=== PATIENT | female | born 1975 | race Two or more races ===

== ENCOUNTER 2024-10-11 11:24 | Observation (INO) | payer BC, SELFPAY ==
[2024-10-11 11:25] VITALS: BMI 24.4
--- NOTE | 2024-10-11 11:42 | EKG_ITS ---
[facility] Test Date: 2024-10-11 Pat Name: FRANCISCO FELIZ Department: Room: - Gender: Female Chief Optometry Service: : 1975 Requested By: Monica Grewal Order Number: [id number] Reading MD: Monica Grewal Measurements Intervals [place] Rate: 70 P: 58 CA: 145 QRS: 51 QRSD: 86 T: 65 QT: 386 QTc: 418 Interpretive Statements SINUS RHYTHM POSSIBLE RIGHT VENTRICULAR CONDUCTION DELAY [RSR (QR) IN V1/V2] Compared to ECG 12/25/2022 23:48:24 No significant changes /store/S0/[id number].pdf
--- NOTE | 2024-10-11 11:42 | XR_ITS ---
Damnation: PA chest single view TECHNIQUE: Upright PA chest single view Date and time: October 11, 2024 1136 hours INDICATIONS: Chest pain weakness nausea dizziness today FINDINGS: Normal heart size Lungs are clear. The osseous structures are intact IMPRESSION: No active disease
--- NOTE | 2024-10-11 11:43 | EDNOTE_ITS ---
ED General RME/HPI General Chief complaint: General Adult/Misc Complain Stated complaint: SENT BY DR. NATION FOR HIGH HR. Time Seen by Provider: 10/11/24 11:30 Arrival date/time: 10/11/24 11:24 RME / HPI RME / HPI narrative: 49-year-old female patient with no significant medical history, came in for evaluation regarding tachycardia. Apparently patient noticed that he is not feeling well, and feeling having palpitation, she checked her heart rate and it was on the 180s, went to PCP's clinic, and her heart rate was noted to be going down. Patient was seen and sent to us for further evaluation. Currently patient is not having any chest pain. Only complaint right now is posterior neck pain. Patient denies any headache denies any other complaints denies any abuse of drugs denies any drinking energy drinks or coffee. Denies any abdominal pain denies any vomiting diarrhea or fever. Related Data Previous Rx's ?Medication ?Instructions ?Recorded ciprofloxacin HCl 500 mg tablet 500 mg PO BID #14 tabs 07/30/23 (Cipro) cyclobenzaprine 10 mg tablet 10 mg PO TID PRN muscle s pasm #20 07/30/23 tabs ibuprofen 600 mg tablet 600 mg PO TID PRN pain #30 t abs 07/30/23 Allergies Allergy/AdvReac Type Severity Reaction Status Date / Time pineapple Allergy Intermediate Hives Verified 10/11/24 11:28 Review of Systems Review of Systems Narrative Review of Systems: Review of system reviewed and within normal limits except mentioned in HPI ED Exam Narrative Physical exam: VITAL SIGNS: Reviewed. GENERAL APPEARANCE: Alert and interactive, follows commands, no acute distress,, anxious HEAD AND FACE: Non-traumatic. ENT: PERRL, pink conjunctivitis, eyelid no trauma, Mucous membrane moist. NECK: Supple, nontender, no nuchal rigidity. CHEST: No tenderness, no crepitus, no paradoxical movement, no retractions. LUNGS: Clear, well ventilated, symmetric, no rales, no wheezing, no ronchi, no stridor, good breath sounds bilaterally. HEART: Regular rate, regular rhythm, no murmur, no gallops. ABDOMEN: Soft, positive bowel sounds, nondistended, no guarding, nontender, no rebound, no masses, RECTAL: Deferred. GENITAL: Deferred. NEUROLOGICAL: Gross motor function intact sensory function intact, Appropriate for age. MUSCULOSKELETAL: low back nontender, full range of motion. EXTREMITIES: Nontender, full range of motion. SKIN: Color pink, dry, no rash, no lacerations, no abrasions, no contusions. LYMPHATICS: Deferred. Course Quality Measures none Orders Category Date Time Status Patient Condition Routine Admission 10/11/24 14:[address] in Observation Status Routine Admission 10/11/24 14:07 Active EKG (ED ONLY) *Do not use* NOW Care 10/11/24 11:42 Completed Intake and Output QSHIFT Care 10/11/24 14:15 Ordered Notify provider NEEDED Care 10/11/24 14:08 Active Obtain weight NOW Care 10/11/24 14:08 Active EKG (ED Only) Stat Exams 10/11/24 11:42 Draft XR chest 1V Stat Exams 10/11/24 11:42 Completed B-Type Natriuretic Peptide Stat Lab 10/11/24 12:06 Completed Basic Metabolic Panel AM DRAW Lab 10/12/24 05:00 Ordered Basic Metabolic Panel AM DRAW Lab 10/13/24 05:00 Ordered Basic Metabolic Panel AM DRAW Lab 10/14/24 05:00 Ordered CBC AM DRAW Lab 10/12/24 05:00 Ordered CBC AM DRAW Lab 10/13/24 05:00 Ordered CBC AM DRAW Lab 10/14/24 05:00 Ordered CBC Stat Lab 10/11/24 12:06 Completed Comprehensive Metabolic Panel Stat Lab 10/11/24 12:06 Completed Drug Screen,Urine Stat Lab 10/11/24 12:36 Completed Free T4 (Free Thyroxine) Stat Lab 10/11/24 12:06 Completed Lipid Panel AM DRAW Lab 10/12/24 05:00 Ordered Liver Panel AM DRAW Lab 10/12/24 05:00 Ordered MRSA Nasal Screen Stat Lab 10/11/24 14:08 Ordered Magnesium AM DRAW Lab 10/12/24 05:00 Ordered Magnesium AM DRAW Lab 10/13/24 05:00 Ordered Partial Thromboplastin Time Stat Lab 10/11/24 12:06 Completed Phosphorous AM DRAW Lab 10/12/24 05:00 Ordered Phosphorous AM DRAW Lab 10/13/24 05:00 Ordered Prothrombin Time with INR AM DRAW Lab 10/12/24 05:00 Ordered TSH [Thyroid Stimulating Hormone] Stat Lab 10/11/24 12:06 Completed Troponin I Stat Lab 10/11/24 12:06 Completed Urinalysis, C/S if Indicated Stat Lab 10/11/24 12:36 Completed Urine Culture Stat Lab 10/11/24 12:36 Received Acetaminophen Tab [Tylenol Tab] Med 10/11/24 14:08 Active 650 mg PO Q6H PRN Famotidine Inj [Pepcid Inj] Med 10/11/24 21:00 Active 20 mg IVP BID Heparin Inj Med 10/11/24 22:00 Active 5,000 unit SC Q8HR Ondansetron Inj [Zofran Inj] Med 10/11/24 14:08 Active 4 mg IV Q6H PRN Senna [Senokot] Med 10/11/24 14:08 Active 2 tab PO BID PRN Code Status Routine Oth 10/11/24 14:08 Ordered Oxygen Delivery DAILY RT 10/11/24 14:08 Active Vital Signs Vital signs: Vital Signs Temperature 98.5 F 10/11/24 11:44 Pulse Rate 77 10/11/24 11:44 Respiratory Rate 16 10/11/24 11:44 Blood Pressure 125/80 10/11/24 11:44 Pulse Oximetry (%) 98 10/11/24 11:44 Oxygen Delivery Method Room Air 10/11/24 11:44 Discharge Plan Plan Patient Disposition: Admit Acute Care w/in Hospital Problem List Clinical Impression: Tachycardia MDM Narrative [facility] hospital course: 49-year-old female patient with no significant medical history, came in for evaluation regarding tachycardia. Apparently patient noticed that he is not feeling well, and feeling having palpitation, she checked her heart rate and it was on the 180s, went to PCP's clinic, and her heart rate was noted to be going down. Patient was seen and sent to us for further evaluation. Currently patient is not having any chest pain. Only complaint right now is posterior neck pain. Patient denies any headache denies any other complaints denies any abuse of drugs denies any drinking energy drinks or coffee. Denies any abdominal pain denies any vomiting diarrhea or fever. Patient cardiac workup today all came back unremarkable. Including normal troponin, urinalysis no UTI. EKG showed normal sinus rhythm, ventricular rate of [address] segment elevation or depression noted. Chest x-ray came back unremarkable. Case discussed with Dr. Caruso, who admitted the patient. Medication Administration(s) Medication Administration History Acetaminophen (Acetaminophen 325 Mg Tablet) 650 mg PO Q6H PRN PRN Reason: PAIN OR FEVER > 101 Stop: 11/10/24 14:07 Famotidine (Famotidine Inj 10 Mg/Ml Vial 2 Ml) 20 mg IVP BID [facility] Stop: 11/10/24 20:59 Heparin Sodium (Porcine) (Heparin Sod Inj 5000 Unit/Ml Vial) 5,000 unit SC Q8HR TIFFANIE Stop: 10/25/24 21:59 Ondansetron HCl (Ondansetron Inj 2 Mg/Ml Inj 2 Ml) 4 mg IV Q6H PRN; Protocol PRN Reason: NAUSEA OR VOMITING Stop: 11/10/24 14:07 Sennosides (Senna Tablet) 2 tab PO BID PRN; Protocol PRN Reason: CONSTIPATION Stop: 11/10/24 14:07 Diagnosis Differential diagnosis: SVT, palpitation, atrial fibrillation Most likely dx, and/or detailed dx discussion: Tachycardia Dispositon Disposition: Admit
[2024-10-11 11:44] VITALS: BP 125/80; PULSE 77; RESP 16; TEMP 36.9; O2SAT 98
[2024-10-11 12:34] LABS: Basophils % (Auto) 0 % (0-2.5); Eosinophils # (Auto) 0.1 Thou/mm3 (0.0-0.5); Eosinophils % (Auto) 1 % (0-10); Hematocrit 43.5 % (36.0-46.0); Hemoglobin 15.3 g/dL (12.0-16.0); Immature Granulocytes % (Auto) 0 % (0-0); Immature Granulocytes Auto 0.02 Thou/mm3 (0.00-0.00); Lymphocytes # (Auto) 1.8 Thou/mm3 (1.0-4.8); Lymphocytes % (Auto) 24 % (10-50); Mean Corpuscular HGB Conc 35.2 g/dl (31.0-37.0); Mean Corpuscular Hemoglobin 32.7 pg (25.0-35.0); Mean Corpuscular Volume 93 fL (80-100); Monocytes # (Auto) 0.5 Thou/mm3 (0.0-0.8); Monocytes % (Auto) 7 % (0-12); Neutrophils % (Auto) 67 % (37-80); Nucleated Red Blood Cell % 0 /100 WBC (0); Platelet Count 388 Thou/mm3 (140-440); RDW Standard Deviation 40.3 fL (36.4-46.3); Red Blood Count 4.68 Miln/mm3 (4.00-5.20); White Blood Count 7.5 Thou/mm3 (3.6-11.0)
[2024-10-11 12:54] LABS: Partial Thromboplastin Time 30.2 Seconds (22.0-36.0)
[2024-10-11 12:59] LABS: Collection Type, Urine Clean Catch
[2024-10-11 13:03] LABS: B-Type Natriuretic Peptide < 20 pg/mL (0-100)
[2024-10-11 13:10] LABS: Alanine Aminotransferase 12 U/L (10-49); Albumin, Serum 4.3 gm/dL (3.5-5.0); Albumin/Globulin Ratio 1.4 (1.2-2.2); Alkaline Phosphatase 56 U/L (46-116); Anion Gap 9 (7-16); BUN/Creatinine Ratio 7 Ratio (12-20); Bilirubin,Total 0.7 mg/dL (0.3-1.2); Blood Urea Nitrogen 5 mg/dL (9-23); Calcium 9.4 mg/dL (8.3-10.6); Calcium (Corrected) 9.4 mg/dL (8.5-10.1); Carbon Dioxide 28.7 mMol/L (20.0-31.0); Chloride 105 mMol/L (98-107); Creatinine (Component) 0.7 mg/dL (0.6-1.3); Free T4 (Free Thyroxine) 1.34 ng/dL (0.89-1.76); Globulin 3.1 gm/dL (2.3-3.5); Glucose 91 mg/dL (74-106); Osmolality,Calculated 282 (275-295); Potassium 4.4 mMol/L (3.4-5.1); Sodium 143 mMol/L (136-145); Thyroid Stimulating Hormone 0.44 uIU/mL (0.55-4.78); Total Protein 7.4 gm/dL (5.7-8.2); Troponin I < 0.002 ng/mL (0.0-0.045); eGFR > 60 See Note
[2024-10-11 13:21] LABS: Amphetamine/Methamp Scrn,U Negative (Negative); Bacteria,Urine 2+; Barbiturate Screen,Urine Negative (Negative); Benzodiazepines Screen,Urine Negative (Negative); Benzoylecgonine Screen, Ur Negative (Negative); Bilirubin,Urine Negative (Negative); Blood,Urine Negative (Negative); Clarity,Urine Clear (Clear/Hazy); Color,Urine Lt-Yellow (Lt Yel-Yel); Fentanyl Screen,Urine Negative (Negative); Glucose, Urine Negative (Negative); Ketones,Urine Negative (Negative); Leukocyte Esterase,Urine Negative (Negative); Nitrite,Urine Negative (Negative); Opiate Screen,Urine Negative (Negative); Protein,Urine Negative (Neg - Trace); RBC,Urine 2 /hpf (0-3); Specific Gravity,Urine 1.009 (1.001-1.035); Squamous Epithelial Cell,Urine 5 /hpf (0-5); THC Screen,Urine Negative (Negative); Urobilinogen,Urine Negative mg/dL (0.0-1.0); WBC,Urine 2 /hpf (0-5)
[2024-10-11 13:56] LABS: Culture Indicated,Urine Yes
--- NOTE | 2024-10-11 14:11 | PD.RESHP ---
Documentation for date of: 10/11/24 [facility] History of Present Illness History of present illness: The patient is a 49-year-old female, past medical history of migraine headaches, perimenopausal symptoms, who was directed to ER from primary care physician's office, the patient was found to be tachycardic, diaphoretic, presyncopal symptoms. Patient reported that she felt chest discomfort and felt that her heart was not beating right , so she decided to go to her primary doctor's office, where a physician saw the patient, noted to be heart rate in the 160 -170s, patient was directed to go to the emergency room. Patient reported that she has had palpitations associated with chest discomfort in the past was evaluated by computer forwarding system markup clerk Dr. Gayla Prahbakar, patient underwent cardiac cath and stress testing, which was reportedly unremarkable. By the time of arrival to ER, patient's symptoms had subsided, in the ER, initial EKG showed sinus rhythm and possible right ventricular conduction delay, narrow complexes. Chest x-ray showed no active disease. CBC and CMP within normal limits, normal electrolytes. Noted TSH 0.44, free T4 within normal limit. Urinalysis showed 2+ bacteria but no pyuria. Past medical history: History of migraines, takes Nurtec once or twice a month, perimenopausal symptoms, history of hysterectomy in the past. Allergies: NKDA Social history: Denies smoking or excessive alcohol or caffeine intake. Review of Systems Review of Systems Narrative Review of Systems: General: Denies fevers or chills HEENT: Denies congestion or sore throat Heart: Endorses chest pain?now resolved, palpitations now resolved Lungs: Denies shortness of breath or cough Abdomen: Denies diarrhea, nausea, vomiting, constipation, bright red blood per rectum or melena Genitourinary: Denies frequency, urgency, dysuria, or hematuria Musculoskeletal: Denies joint pain, denies muscular pain Neurology: Denies any numbness, tingling Review of systems otherwise negative except what is mentioned above. Past Medical History Past Medical History NEUROLOGIC: Positive Neurological Disorders and Migraine (no medication) CARDIAC: Negative Cardiac Disorders or Congestive Heart Failure RESPIRATORY: Negative Chronic Obstructive Pulmonary Disease (COPD) GASTROINTESTINAL: Negative Gastrointestinal Disorders or Hepatitis GENITOURINARY: Negative Genitourinary Disorders or Renal Disease REPRODUCTIVE: Positive Previous Pregnancies (x5); Negative Endometriosis, Pelvic Inflammatory Disease or Uterine Prolapse MUSCULOSKELETAL: Positive Musculoskeletal Disorders and Scoliosis ENDOCRINE: Negative Endocrine Disorders (possible hyperthyroid, not diagnosed), Diabetes Mellitus Type 1 or Diabetes Mellitus Type 2 HEMATOLOGIC: Negative Blood Disorders PSYCHO/SOCIAL: Positive Anxiety (takes medication prn, not daily) OTHER HISTORY: Positive Anesthesia Reactions, Chicken Pox and Measles; Negative Hospitalization, Autoimmune Disease, Down Syndrome, Developmental Delay, Shingles, Falls, Blood Transfusions, Blood Transfusion Reaction, Organ Transplant, Chemotherapy, Radiation Therapy, Hyperbaric Therapy, MRSA, VRSA, Vancomycin-Resistant Enterococci, Human Immunodeficiency Virus (HIV), Mumps, Rubella (Romansh Measles), Pertussis, Clostridium Difficile or Cancer Family History FAMILY HISTORY: Negative Family Psychiatric Problems, Family Respiratory Disorders, Family Cardiac Disorders, Family Gastrointestinal Problems, Family Cancer, Family Surgery or Family Anesthesia Reaction Surgical History SURGICAL: Positive Hysterectomy and Section (x3); Negative Cardiac Surgery, Endocrine Surgery, Abdominal Surgery, Joint Replacement or Organ Transplant Social History SMOKING STATUS: Never smoker Exam Vital Signs Temp Pulse Resp BP Pulse Ox O2 Del Method 98.5 F 77 16 125/80 98 Room Air 10/11/24 11:44 10/11/24 11:44 10/11/24 11:44 10/11/24 11:44 10/11/24 11:44 10/11/24 11:44 Narrative Exam General: AOx3, cooperative Skin: Intact, no cyanosis or edema noted. HEENT: Atraumatic/normocephalic, MILDRED, neck supple Heart: RRR, S1 and S2 without clicks or murmurs Lungs: Clear on auscultation bilaterally, no difficulty breathing Abdomen: Soft, nontender. Bowel sounds present . Vascular: Peripheral pulses palpable Neuro: No focal neurological deficits noted. Results: Labs 10/11/24 12:06 10/11/24 12:06 Labs: Short CBC 10/11/24 Range/Units 12:06 WBC 7.5 (3.6-11.0) Thou/mm3 Hgb 15.3 (12.0-16.0) g/dL Hct 43.5 (36.0-46.0) % Plt Count 388 (140-440) Thou/mm3 BMP 10/11/24 12:06 Sodium 143 Potassium 4.4 Chloride 105 Carbon Dioxide 28.7 BUN 5 L Creatinine 0.7 Glucose 91 Calcium 9.4 Cardiac Enzymes 10/11/24 Range/Units 12:06 Troponin I < 0.002 (0.0-0.045) ng/mL Liver Function 10/11/24 Range/Units 12:06 Total Bilirubin 0.7 (0.3-1.2) mg/dL ALT 12 (10-49) U/L Alkaline Phosphatase 56 (46-116) U/L Albumin 4.3 (3.5-5.0) gm/dL Urine 10/11/24 Range/Units 12:36 Urine Color Lt-Yellow (Lt Yel-Yel) Urine Clarity Clear (Clear/Hazy) Urine pH 7.0 (5.0-7.0) Ur Specific Pride 1.009 (1.001-1.035) Urine Protein Negative (Neg - Trace) Urine Glucose (UA) Negative (Negative) Quality Measures Quality Measures VTE prophylaxis Medications Home Medications and Allergies Allergies Allergy/AdvReac Type Severity Reaction Status Date / Time pineapple Allergy Intermediate Hives Verified 10/11/24 11:28 Visit Medications Acetaminophen (Acetaminophen 325 Mg Tablet) 650 mg PO Q6H PRN PRN Reason: PAIN OR FEVER > 101 Stop: 11/10/24 14:07 Heparin Sodium (Porcine) (Heparin Sod Inj 5000 Unit/Ml Vial) 5,000 unit SC Q8HR TIFFANIE Stop: 10/25/24 21:59 Ondansetron HCl (Ondansetron Inj 2 Mg/Ml Inj 2 Ml) 4 mg IV Q6H PRN; Protocol PRN Reason: NAUSEA OR VOMITING Stop: 11/10/24 14:07 Sennosides (Senna Tablet) 2 tab PO BID PRN; Protocol PRN Reason: CONSTIPATION Stop: 11/10/24 14:07 Assessment & Plan Problem List (1) Tachycardia: Status: Acute Assessment and plan: History of intermittent palpitations, associated with atypical chest pain, and primary care physician's office noted to have a heart rate in the 160s, was directed to go to the emergency room, normal sinus rhythm on EKG on arrival to the emergency room. Patient had a prior evaluation by computer forwarding system markup clerk Dr. Gayla Prabhakar in 2023 including stress testing and left heart cath, which was unremarkable. Patient likely has paroxysmal SVT, will require observation for 24 to 48 hours on telemetry to monitor for arrhythmia. TSH below normal, but normal free T4, possible subclinical hyperthyroidism, will require repeat thyroid function testing in the a.m. - Cardiology consulted Dr. Gayla Prabhakar placed - Telemetry monitoring during inpatient stay, may require Holter or loop recorder for extended monitoring On discharge. (2) Chest pain: Status: Acute Assessment and plan: Complaining of atypical chest pain located on the upper chest, no radiation to the jaw or extremities, describes it as sharp pain, but associated to only during episodes of palpitations. Patient had normal coronary arteries on left heart cath in 2023. Initial troponin within normal limits. EKG shows normal sinus rhythm with no acute ST or T wave changes. Denied active chest pain at the time of evaluation. - Consider repeat troponin if chest pain continues. (3) History of migraine: Status: Acute Assessment and plan: Patient takes Nurtec for migraines, requires to take it once or twice a month. ? Tylenol for headache as needed (4) Perimenopause: Status: Acute Assessment and plan: Experiencing perimenopausal symptoms, including diaphoresis, chest tightness, but tachycardia with heart rate in the 160s is unusual and cannot be explained by perimenopausal symptoms. ? Pending med rec ? Observe on telemetry. (5) Bacteriuria: Status: Acute Assessment and plan: The patient denied any fever or dysuria, urinalysis positive for 2+ bacteria but negative pyuria. ? Pending urine culture, patient asymptomatic will hold off on antibiotics at this moment for asymptomatic bacteriuria. Assessment Disposition: Observe- tele DVT prophylaxis: Heparin subcut GI prophylaxis: Famotidine Diet: regular Lines: PIV CODE STATUS: Full Plan Plan of care discussed with the attending physician Dr. Cathryn Mas PGY2 Attending Provider Attestation/Addendum Patient seen and examined with resident physician Dr. Ruiz. Note reviewed, agree with findings and recommendations. Addendum admitted with tachycardia, palpitations. Spoke to Dr. Sotelo-will do overnight admission. Monitor closely.
[2024-10-11 14:39] VITALS: BP 135/69; PULSE 60; PULSE 67; RESP 16; RESP 18; RESP 99; O2SAT 99
[2024-10-11 16:00] VITALS: PULSE 70
[2024-10-11 20:00] VITALS: BP 120/64; PULSE 78; PULSE 84; RESP 18; TEMP 36.4; O2SAT 97
[2024-10-11] MEDS: FAMOTIDINE INJ 10 MG/ML VIAL 2 ML 20 MG IVP (21:34)
[2024-10-11] MEDS: HEPARIN SOD INJ 5000 UNIT/ML VIAL SC (21:35)
--- NOTE | 2024-10-11 22:38 | ESCONSULT_ITS ---
RE: FRANCISCO FELIZ : 1975 DATE OF CONSULTATION: 10/11/2024 CONSULTING PHYSICIANS: REASON FOR CONSULTATION: Evaluation of palpitations, possible SVT, tachycardia, cardiac arrhythmia symptomatic. HISTORY OF PRESENT ILLNESS: The patient is a 49-year-old female with a past medical history of migraine headaches, atypical chest pain, negative coronary angiogram. She had a coronary angiogram a year ago showing normal coronary arteries. Negative cardiac workup. She has been doing well until today. Apparently, the patient felt sudden onset of tachycardia, rapid heart rate and palpitation, diaphoretic, nearly fainted, presyncopal episode felt like the heart was going extremely fast. It was sudden onset of symptoms, heart rate 160 to 170 beats per minute, lasted about 20 minutes, abrupt onset and she went to Dr. Lockett primary care where she was having severe palpitations and was sent to the emergency room. By the time she came to the emergency room, her heart rate is back to normal. EKG is also normal. There is no evidence of cardiac arrhythmias. Chest x-ray was negative. CBC is normal. Thyroid panel is normal. Rest of the workup is negative. She is here for observation for possible SVT arrhythmias. PAST MEDICAL HISTORY: History of migraine headaches that take Nurtec and also perimenopausal symptoms. PAST SURGICAL HISTORY: Hysterectomy, cardiac workup. Coronary angiogram was performed in 07/2023 that did show essentially normal coronary arteries, ejection fraction 70%. She was not having these type of symptoms in the past. ALLERGIES: Unknown. MEDICATIONS: The patient is on no major cardiac medications. SOCIAL HISTORY: The patient is a nonsmoker. She does not drink alcoholic beverage. She does have a cup of coffee. FAMILY HISTORY: Family history is not contributory. REVIEW OF SYSTEMS: Cardiovascular system: Palpitations, near syncope, but no chest pain. No shortness of breath. Gastrointestinal: No history of nausea, or vomiting. PHYSICAL EXAMINATION: GENERAL: Pleasant lay, thin built alert, awake, in no acute distress. VITAL SIGNS: Vital signs are normal. Blood pressure 120/64. Pulse rate is 78, regular. Respirations 16. Temperature normal. HEENT: Head is atraumatic, normocephalic. Eyes normal. ENT normal. NECK: Supple. No JVD. Carotid pulses felt but no bruits. CHEST: Symmetrical. LUNG: Clear. HEART: S1, S2 regular. No gallops or murmurs. ABDOMEN: Thin and soft. EXTREMITIES: No edema. /RECTAL: Not performed. SKIN: Normal. DIAGNOSTIC DATA: Echocardiogram showed sinus rhythm, nonspecific changes. ASSESSMENT: 1. Episode of near syncope secondary to tachycardia. 2. Marked tachycardia 160 beats per minute with sudden onset sudden lasting 20 minutes. Highly likelihood this is AV terell oriented type of supraventricular tachycardia, again not recorded. RECOMMENDATIONS: The patient should overnight. Discharge the patient home. I will do a 7-day heart monitor initially in my office and subsequently 30-day heart monitor and possible event monitor to record the arrhythmias. The patient may have SVT episodes if it is diagnosed, especially if it is frequent episodes every few weeks instead of every few months, she may be a candidate for ablation procedure. For now, we will watch overnight. The patient to have further workup as an outpatient in my office. DT: 21:27:59 TT: 22:20:00 Ref: [id number] - TID: [id number] MTDD
[2024-10-12] VITALS: BP 96/62; PULSE 63; PULSE 65; RESP 12; TEMP 36.6; O2SAT 98
[2024-10-12 04:00] VITALS: BP 91/57; PULSE 63; PULSE 68; RESP 18; TEMP 36.1; O2SAT 97
[2024-10-12 05:02] VITALS: BMI 25.9
[2024-10-12] MEDS: HEPARIN SOD INJ 5000 UNIT/ML VIAL SC (05:20)
[2024-10-12 05:23] VITALS: BP 102/59; PULSE 67
[2024-10-12 05:45] LABS: Basophils % (Auto) 1 % (0-2.5); Eosinophils # (Auto) 0.1 Thou/mm3 (0.0-0.5); Eosinophils % (Auto) 2 % (0-10); Hematocrit 39.6 % (36.0-46.0); Hemoglobin 13.7 g/dL (12.0-16.0); Immature Granulocytes % (Auto) 0 % (0-0); Immature Granulocytes Auto 0.01 Thou/mm3 (0.00-0.00); Lymphocytes # (Auto) 2.3 Thou/mm3 (1.0-4.8); Lymphocytes % (Auto) 32 % (10-50); Mean Corpuscular HGB Conc 34.6 g/dl (31.0-37.0); Mean Corpuscular Hemoglobin 33.3 pg (25.0-35.0); Mean Corpuscular Volume 96 fL (80-100); Monocytes # (Auto) 0.6 Thou/mm3 (0.0-0.8); Monocytes % (Auto) 9 % (0-12); Neutrophils # (Auto) 4.1 Thou/mm3 (1.8-7.7); Neutrophils % (Auto) 57 % (37-80); Nucleated Red Blood Cell % 0 /100 WBC (0); Platelet Count 338 Thou/mm3 (140-440); RDW Standard Deviation 41.1 fL (36.4-46.3); Red Blood Count 4.12 Miln/mm3 (4.00-5.20); White Blood Count 7.2 Thou/mm3 (3.6-11.0)
[2024-10-12 06:03] LABS: Prothrombin Time 10.8 Seconds (9.0-12.2)
[2024-10-12 06:27] LABS: Glucose Estimated Average 97 mg/dL (80-131)
[2024-10-12 06:46] LABS: Alanine Aminotransferase 9 U/L (10-49); Albumin, Serum 3.4 gm/dL (3.5-5.0); Alkaline Phosphatase 45 U/L (46-116); Anion Gap 6 (7-16); Aspartate Amino Transferase 18 U/L (0-34); BUN/Creatinine Ratio 10 Ratio (12-20); Bilirubin,Direct 0.2 mg/dL (0.0-0.3); Bilirubin,Total 0.7 mg/dL (0.3-1.2); Blood Urea Nitrogen 6 mg/dL (9-23); Calcium 8.5 mg/dL (8.3-10.6); Carbon Dioxide 24.9 mMol/L (20.0-31.0); Cardiac Risk Estimate 3.4 RATIO (3.7-5.6); Chloride 109 mMol/L (98-107); Cholesterol 165 mg/dL (132-200); Creatinine (Component) 0.6 mg/dL (0.6-1.3); Estimated Creatinine Clearance 90.1 mL/min (>60); Free T4 (Free Thyroxine) 1.25 ng/dL (0.89-1.76); Glucose 85 mg/dL (74-106); HDL Cholesterol 48 mg/dL (40-60); LDL Cholesterol,Calculated 94 mg/dL (0-130); Magnesium 1.8 mg/dL (1.6-2.6); Osmolality,Calculated 276 (275-295); Phosphorous 3.4 mg/dL (2.4-5.1); Potassium 3.9 mMol/L (3.4-5.1); Sodium 140 mMol/L (136-145); Thyroid Stimulating Hormone 0.68 uIU/mL (0.55-4.78); Total Protein 5.9 gm/dL (5.7-8.2); Triglycerides 116 mg/dL (30-150); eGFR > 60 See Note
[2024-10-12 08:00] VITALS: BP 117/66; PULSE 73; PULSE 93; RESP 24; TEMP 36.4; O2SAT 98
[2024-10-12] MEDS: Magnesium Sulfate 2 GM Ivpb 2 GM/50 ML BAG IV (08:02)
[2024-10-12] MEDS: FAMOTIDINE INJ 10 MG/ML VIAL 2 ML 20 MG IVP (08:02)
[2024-10-12] MEDS: POTASSIUM CHLORIDE 20 mEq TABCR PO (08:03)
--- NOTE | 2024-10-12 08:56 | ESDS_ITS ---
Planned Discharge Date 10/12/24 DS: Providers Provider Date of admission: 10/11/24 14:18 Primary care physician: Shira Lockett MD Admitting Provider: Shira Lockett MD Attending Provider on Admission: Shira Lockett MD Consults: 10/11/24 15:40 Consult to Cardiology Routine Comment: Consulting Provider: Tyron Prabhakar Attending Provider on DC: Shira Lockett MD Discharging Provider: Shira Lockett MD DS: Diagnosis Problem List Completed Was Problem List Reviewed/Reconciled?: Yes Hospital Course Hospital Course Hospital course: Aruna is a 49-year-old female w/PMHx of migraine headaches, perimenopausal symptoms, who was admitted to [facility] on 10/11/2024 from her PCP's office, Dr. Lockett for evaluation of SVT. Pt was told to go to ER after she had noticed her HR was in the 160s and was seen in the office where her heart rate was running from the 160s to 170s and felt diaphoretic and predromal sx. By the time of arrival to ER, patient's symptoms had subsided, in the ER, initial EKG showed sinus rhythm and possible right ventricular conduction delay, narrow complexes. Chest x-ray showed no active disease. CBC and CMP within normal limits, normal electrolytes, TSH 0.68, free T4 within normal limit. Urinalysis showed 2+ bacteria but no pyuria. Patient was admitted for observation. While patient was on the floors, patient was seen by osteopathic physician, Dr. Prabhakar who is her osteopathic physician. Dr. Prabhakar had recommended patient to get Holter monitor outpatient for further workup and may be a candidate for ablation procedure based off findings as there was no recorded event of SVT at this time. Patient in the past has had negative coronary angiogram, and her further cardiac workup was unremarkable. She was then discharged with the following instructions. Discharge Instructions: Follow-up with your PCP, Dr. Lockett within [address] Prabhakar's office today for Holter monitor placement Avoid energy drinks, limit caffeine intake and drink plenty of water Return to ED if your symptoms worsen or return Problem List: #SVT #History of migraine #Perimenopause #Bacteriuria Discharge summary was reviewed with my attending Dr. Cathryn Kamara, PGY-1 Status at Discharge Cognitive/behavioral status at discharge: Stable Functional status at discharge: independent ambulation Overall status at discharge: patient is back to baseline Time Spent with Patient Time attestation: Total time spent providing and/or coordinating discharge services: Time spent: Greater than 30 minutes Exam Vital Signs Temp Pulse Resp BP Pulse Ox O2 Del Method 97.6 F 93 24 H 117/66 98 Room Air 10/12/24 08:00 10/12/24 08:00 10/12/24 08:00 10/12/24 08:00 10/12/24 08:00 10/12/24 08:00 Narrative Exam General: AOx3, cooperative Skin: Intact, no cyanosis or edema noted. HEENT: Atraumatic/normocephalic, [place], neck supple Heart: RRR, S1 and S2 without clicks or murmurs Lungs: Clear on auscultation bilaterally, no difficulty breathing Abdomen: Soft, nontender. Bowel sounds present . Vascular: Peripheral pulses palpable Neuro: No focal neurological deficits noted. Discharge Plan Plan Patient Disposition: HOME (Self Care) Patient condition on transfer: Stable Care Plan Goals: Discharge Instructions: Follow-up with your PCP, Dr. Lockett within [address] Prabhakar's office today for Holter monitor placement Avoid energy drinks, limit caffeine intake and drink plenty of water Return to ED if your symptoms worsen or return Prescriptions/Referrals Prescriptions/Med Rec: Discontinued ciprofloxacin HCl [Cipro] 500 mg tablet 500 mg PO BID Qty: 14 0RF cyclobenzaprine 10 mg tablet 10 mg PO TID PRN (Reason: muscle spasm) Qty: 20 0RF ibuprofen 600 mg tablet 600 mg PO TID PRN (Reason: pain) Qty: 30 0RF Referrals: Shira Lockett MD [Primary Care Provider] - Patient/Caregiver Discharge Instructions Discharge Activity: activity as tolerated Education Materials: Your Heart's Electrical System, Understanding Tachycardia, ED About Arrhythmias Print Language: Maltese Activity Restrictions/Additional Instructions: f/u with dr. lockett in 1-2 weeks F/u with Dr. corley today in his office- HOLTER monitor Stand Alone Forms: [employer] Award Info., Patient Portal Info Letter, Work/Release Restrictions Discharge Order Discharge Orders: Discharge (Routine); Ordered 10/12/24 Ordered By: Shira Lockett Quality Discharge Quality Measures VTE prophylaxis (Heparin) MD Attestestation MD Attestation Patient seen and examined with resident physician Dr. Walters. Note reviewed, agree with findings and recommendations. Patient currently seen in telemetry. Resting comfortably. No further episodes of SVT. Spoke to Dr. Corley-will see her in the office today and place a 7- day Holter monitor. Patient will be discharged today. Follow-up with me in 1 to 2 weeks
[2024-10-12 09:00] VITALS: PULSE 73; RESP 18; RESP 99
[2024-10-12 10:00] VITALS: BP 117/77; PULSE 65; RESP 19; TEMP 36.6; O2SAT 98
--- NOTE | 2024-10-12 10:32 | PC.SS ---
SS attempted to see patient but patient was here on observation and already discharged early this moroning. d/c home no needs.
== END 2024-10-12 10:10 | disposition home or self-care (01) ==
LOC: SERX 12:28 → SERHOLD 14:23 → S2NX 10-12 07:20 → SERHOLD 10-12 07:23 → S2NX 10-12 07:24 → SERHOLD 10-12 07:24
PROVIDERS: Nurse Practitioner Family; Student in an Organized Health Care Education/Training Program; Admitting Provider Internal Medicine; Emergency Provider Emergency Medicine; PCP Internal Medicine; Visit Provider Internal Medicine
DX: I47.10 Supraventricular tachycardia, unspecified (principal); N95.1 Menopausal and female climacteric states; G43.909 Migraine, unspecified, not intractable, without status migrainosus; Z01.810 Encounter for preprocedural cardiovascular examination
CPT/HCPCS: 36415; 71045; 80048; 80053; 80061; 80076; 80307; 81001; 83036; 83735; 83880; 84100; 84439; 84443; 84484; 85025; 85610; 85730; 87081; 87086; 87811; 93005; 96372; 96374; 96376; 99285; G0378; J1644; J3475; J3490; A9270